=== PATIENT | male | born 1985 | race Caucasian/White ===

== ENCOUNTER 2020-07-12 17:05 | Emergency (ER) | payer OTHER, SELFPAY ==
[2020-07-12 17:15] VITALS: BP 131/75; PULSE 76; RESP 16; TEMP 36.6; O2SAT 97
[2020-07-12] MEDS: LIDO 1%/SOD BICARB 8.4% (10ML) 10 ML SYRINGE INJ (18:00)
[2020-07-12] MEDS: BACITRACIN OINT 0.9 GM PCKT 1 APPLIC TOP (18:00)
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
[2020-07-12 20:19] VITALS: BP 116/61; PULSE 72; RESP 14; O2SAT 96
== END 2020-07-12 20:22 | disposition home or self-care (01) ==
PROVIDERS: Emergency Provider Emergency Medicine
DX: S01.01XA Laceration without foreign body of scalp, initial encounter (principal); W22.8XXA Striking against or struck by other objects, initial encounter; Y99.0 Civilian activity done for income or pay
CPT/HCPCS: 12001; 99281; 99283